=== PATIENT | male | born 1985 | race Caucasian/White ===

== ENCOUNTER 2016-06-06 02:59 | Emergency (ER) | payer OTHER, BC ==
[2016-06-06 03:10] VITALS: BP 139/91
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
[2016-06-06] MEDS ORDERED: Lactated Ringers 1,000 ML IV ONE (03:25)
[2016-06-06] MEDS ORDERED: fentaNYL 100 MCG/2 ML SDV IVPUSH ONE ×5 (03:45→04:45)
[2016-06-06] MEDS ORDERED: Diphtheria,Pertussis(Acell),Tetanus Vaccine 0.5 ML SDV inactive IM ONE (04:07)
[2016-06-06] MEDS ORDERED: Silver Sulfadiazine 1% Crm 50 GM Tube TOP ONE ×2 (04:43→05:01)
[2016-06-06] MEDS ORDERED: Acetaminophen/oxyCODONE 325-5 MG Tab PO ONE (04:45)
[2016-06-06] MEDS ORDERED: Lactated Ringers 500 ML IV ONE (04:46)
[2016-06-06] MEDS ORDERED: Lactated Ringers 1,000 ML IV SCH (05:45)
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
== END 2016-06-06 06:48 | disposition home or self-care (01) ==
LOC: JD.ED 02:59
DX: T20.311A Burn of third degree of right ear [any part, except ear drum], initial encounter (principal); T23.311A Burn of third degree of right thumb (nail), initial encounter; T23.231A Burn of second degree of multiple right fingers (nail), not including thumb, initial encounter; T20.04XA Burn of unspecified degree of nose (septum), initial encounter; Z88.0 Allergy status to penicillin
CPT/HCPCS: 16020; 36415; 71010; 71010-26; 80053; 81001; 85025; 90471; 90715; 96361; 96374; 96376; 99283; 99284-25; A9270-GY; J3010; J7120